=== PATIENT | female | born 1980 | race Caucasian/White ===

== ENCOUNTER 2024-03-30 07:11 | Emergency (ER) | payer OTHER ==
[~2024-03-30] VITALS: Ht 162.6 cm; Wt 56.7 kg
[2024-03-30] MEDS ORDERED: DEXAMETHASONE SOD PHOSPHATE 4 MG INJ ONE (07:48)
[2024-03-30] MEDS ORDERED: FAMOTIDINE 20 MG TABLET ONE (07:48)
[2024-03-30] MEDS ORDERED: diphenhydrAMINE 50 MG CAPSULE ONE (07:49)
[2024-03-30] MEDS: DEXAMETHASONE SOD PHOSPHATE 4 MG INJ IM ONE (07:52)
[2024-03-30] MEDS: FAMOTIDINE 20 MG TABLET PO ONE (07:52)
[2024-03-30] MEDS: diphenhydrAMINE 50 MG CAPSULE PO ONE (07:52)
[2024-03-30 08:17] LABS: BASOPHILS % (AUTO) 0.5 % (0.0-2.0); HEMATOCRIT 38.5 % (31.2-41.9); HEMOGLOBIN 12.9 g/dL (10.9-14.3); LYMPHOCYTES # (AUTO) 0.7 K/uL (0.8-4.8); LYMPHOCYTES % (AUTO) 14.9 % (20.5-51.5); MEAN CORPUSCULAR HEMOGLOBIN 30.4 uug (24.7-32.8); MEAN CORPUSCULAR HGB CONC 34 g/dL (32.3-35.6); MEAN CORPUSCULAR VOLUME 90.6 fL (75.5-95.3); MONOCYTES # (AUTO) 0.4 K/uL (0.1-1.30); MONOCYTES % (AUTO) 8.7 % (0.0-11.0); NEUTROPHILS # (AUTO) 3.6 K/uL (1.8-8.9); NEUTROPHILS % (AUTO) 74.9 % (38.5-71.5); PLATELET COUNT (AUTO) 197 K/uL (179-408); RED BLOOD CELL COUNT(AUTO) 4.25 MIL/uL (3.63-4.92); RED CELL DISTRIBUTION WIDTH 12.7 % (12.3-17.7); WHITE BLOOD COUNT (AUTO) 4.9 K/uL (3.8-11.8)
[2024-03-30 08:23] LABS: DIFFERENTIAL COMMENT 1
[2024-03-30 08:27] LABS: CALCIUM 8.6 mg/dL (8.5-10.1); CREATININE 0.7 mg/dL (0.6-1.3); POTASSIUM 3.9 mmol/L (3.5-5.1)
[2024-03-30] MEDS ORDERED: PRED20TA PO (09:12)
[2024-03-30] MEDS ORDERED: HYDR-501 PO (09:12)
[2024-03-30] MEDS ORDERED: ACETAMINOPHEN 325 MG TABLET ONE (09:17)
[2024-03-30] MEDS: ACETAMINOPHEN 325 MG TABLET PO ONE (09:21)
[2024-03-30 09:25] VITALS: BP 119/78; O2SAT 99
[2024-03-31] MEDS ORDERED: PRED20TA PO (02:51)
[2024-03-31] MEDS ORDERED: DIPH25TA25 PO (02:51)
== END 2024-03-30 09:26 | disposition home or self-care (01) ==
LOC: ER 07:11
DX: L50.9 Urticaria, unspecified (principal); Z79.1 Long term (current) use of non-steroidal anti-inflammatories (NSAID); Z79.899 Other long term (current) drug therapy
CPT/HCPCS: 99284; 80048; 85025; 36415; 96372; Q0163; J1100; A4606; A4663

== ENCOUNTER 2024-03-31 02:18 | Emergency (ER) | payer OTHER ==
[~2024-03-31] VITALS: Ht 162.6 cm; Wt 56.7 kg
[~2024-03-31 02:18] MED LIST: HYDR-501 PO; PRED20TA PO
[2024-03-31] MEDS ORDERED: DIPH25TA25 PO (02:51)
[2024-03-31] MEDS ORDERED: PRED20TA PO (02:51)
[2024-03-31] MEDS ORDERED: diphenhydrAMINE 50 MG/1 ML VIAL ONE (02:52)
[2024-03-31] MEDS ORDERED: predniSONE 20 MG TABLET ONE (02:52)
[2024-03-31] MEDS: predniSONE 20 MG TABLET PO ONE (02:55)
[2024-03-31] MEDS: diphenhydrAMINE 50 MG/1 ML VIAL IM ONE (02:55)
[2024-03-31 03:21] VITALS: BP 110/70; TEMP 98.1; O2SAT 97
== END 2024-03-31 03:22 | disposition home or self-care (01) ==
LOC: ER 02:26
DX: L50.9 Urticaria, unspecified (principal); Z79.1 Long term (current) use of non-steroidal anti-inflammatories (NSAID); Z79.891 Long term (current) use of opiate analgesic; Z79.899 Other long term (current) drug therapy
CPT/HCPCS: 99283; 96372; J7512; J1200; A4606; A4663